=== PATIENT | male | born 1950 | race Caucasian/White ===

== ENCOUNTER 2016-06-16 15:21 | Emergency (ER) | payer MEDICARE ==
--- NOTE | ~2016-06-16 | CR72 ---
[facility]. [facility] A Service of [facility] RADIOLOGY TEXT RESULTS PATIENT: ALEXANDRA MAC LOCATION: SED : 54 UNIT #: [id number] AGE: [address]: Paul Gonzalez MD SEX: M ORDER DR: [id number] [place] [id number] E MR#: [id number] Acc #: [id number] NAME: ALEXANDRA MAC : 1950 SEX: M STUDY DATE/TIME: 06/16/2016 15:27 UNIT: SED ROOM: STUDY DESCRIPTION: CR Chest Single View Portable Attending Physician: aPul Gonzalez M.D. Ordering Physician: Paul Gonzalez M.D. Primary Care Physician: Primary Care Physician No MEDICAL IMAGING REPORT This report is preliminary unless electronic signature is present. EXAM Portable chest HISTORY Congestion and chest pain and shortness of air for 2 days. FINDINGS The cardiac size and pulmonary vascularity are within normal limits. No airspace infiltrates or effusions. IMPRESSION Negative chest. Dictated by... Eros Shen M.D. THIS IS AN ELECTRONICALLY VERIFIED REPORT Eros Shen M.D. at 06/17/2016 3:01 PM Elizabeth TD: 06/17/2016 07:39 JOB #: [id number] MEDICAL IMAGING REPORT Page 1 of 1
[~2016-06-16 15:21] MED LIST: ACETAMINOPHEN500 M3 PO; ADVAIR 250-501 EAC1 INH; ALB/IPRATROPIUM/1 E1 INH; ALBUTEROL 0.5ML INH; ALBUTEROL MININEB NEB; ALBUTEROL0.63 MG/3 IH; ALBUTEROL0.83 MG/ML IH; ALBUTEROL17 GM INH; ALPRAZOLAM1 MG PO; AMITRIPTYLINE H25 MG PO; AMITRIPTYLINE H50 MG PO; AUGMENTIN PO; AVELOX400 M1 PO; AZITHROMYCIN250 MG PO; BUMETANIDE1 MG PO; BUMEX1 MG PO; CIPRO PO; CLEOCIN HCL300 M1 PO; CLONIDINE HCL0.1 MG PO; COMBIVENT INH14.7 GM INH; COMBIVENT MININEB INH; COMBIVENT U/D3 ML INH; COMBIVENT14.7 GM INH; DOXYCYCLINE150 MG PO; DUONEB 2.5-0.5 M3 ML NEB; GABAPENTIN400 M2 PO; IBUPROFEN800 MG PO; KLONOPIN1 MG PO; KLONOPIN2 MG PO; LASIX PO; LEVAQUIN750 MG PO; LORTAB 10-5001 EACH PO; LORTAB 10/500 T1 TAB PO; LORTAB 101 TAB 10/5 PO; LORTAB 5/500 TA1 TA1 PO; LOTRIMIN 1% CR30 GM TOP; MEDROL DOSEPAK4 MG DOB; MEDROL PO; MEDROL4 MG/DOSE- PO; METHADONE HCL10 MG PO; METHADONE PO; MOTRIN600 MG PO; MUCUS RELIEF600 MG PO; NO MEDICATIONS; PREDNISONE PO; PREDNISONE10 MG PO; PREDNISONE10 MG/DOSE PO; PROAIR HFA8.5 GM IH; PROVENTIL0.83 MG/ML IH; PROVENTIL17 G1 IH; SPIRIVA18 MCG INH; SYMBICORT 160/4.6 GM IH; SYMBICORT INH; TRAMADOL HCL50 M1 PO; TYL325 PO; VALIUM2 MG PO; VIBRAMYCIN100 M1 PO; WALGREENS PHARMACY; XANAX1 MG PO; ZITHROMAX PO; ZITHROMAX1 G/PKT PO
[2016-06-16 16:02] LABS: BASOPHIL% 0.5 % (0-2.5); EOSINOPHIL# 0.4 X10e3 (0-0.7); EOSINOPHIL% 4.3 % (0.0-7.0); HEMATOCRIT 40.4 % (38.0-50.0); HEMOGLOBIN 13.3 gm/dL (13.0-16.0); LYMPHOCYTE# 1.4 X10e3 (1.0-3.5); MEAN CELL VOLUME 89.4 FL (83-96); MEAN CORPUSCULAR HEMOGLOBIN 29.5 PG (28-34); MEAN PLATELET VOLUME 8.4 FL (6.5-11.5); MONOCYTE# 0.8 X10e3 (0-1.0); MONOCYTE% 9.4 % (3.0-12.0); NEUTROPHIL% 69.8 % (40-75); PLATELET COUNT 159 X10e3 (140-420); RED BLOOD COUNT 4.52 X10e (3.90-5.60); RED CELL DISTRIBUTION WIDTH 13.9 % (11.0-15.5); WHITE BLOOD COUNT 8.6 X10e3 (4.0-10.5)
[2016-06-16 16:09] LABS: DIFF IND NO
[2016-06-16 16:22] LABS: ALBUMIN SERUM 4.1 g/dL (3.5-5.0); BILIRUBIN,TOTAL 0.7 mg/dL (0.2-2.0); CALCIUM SERUM 8.8 mg/dL (8.4-10.2); CREATININE SERUM 0.7 mg/dL (0.6-1.4); GLOM FILT RATE Estimated 100.5 mL/min (>60); POTASSIUM 4.1 mmol/L (3.5-5.1); PROTEIN TOTAL SERUM 7.5 g/dL (6.0-8.3)
[2016-06-16 17:36] LABS: POC - CKMB 2.4 ng/mL (0.0-7.9); POC - TROPONIN <0.05 ng/mL (<=0.05)
== END 2016-06-16 17:52 | disposition home or self-care (01) ==
LOC: SED 15:21
PROVIDERS: Emergency Medicine
DX: J44.1 Chronic obstructive pulmonary disease with (acute) exacerbation (principal); J20.9 Acute bronchitis, unspecified; J44.0 Chronic obstructive pulmonary disease with (acute) lower respiratory infection; B19.20 Unspecified viral hepatitis C without hepatic coma; F17.200 Nicotine dependence, unspecified, uncomplicated
CPT/HCPCS: 36415; 71010; 80053; 82553; 83874; 84484; 85025; 94640; 96374; 99291; J1100

== ENCOUNTER 2016-10-23 13:16 | Emergency (ER) | payer MEDICARE ==
[~2016-10-23] VITALS: Ht 175.3 cm; Wt 99.8 kg
--- NOTE | ~2016-10-23 | EKG ---
PATIENT: ALEXANDRA MAC UNIT #: [id number] Ventricular Rate: 114 BPM Atrial Rate: 114 BPM P-R Interval: 162 ms QRS Duration: 90 ms Q-T Interval: 344 ms QTC Calculation(Bezet): 474 ms P [place]: 74 degrees Calculated R [place]: -47 degrees Calculated T [place]: 67 degrees Diagnosis Line: Sinus tachycardia Diagnosis Line: Left axis deviation Diagnosis Line: Abnormal ECG Diagnosis Line: When compared with ECG of 12-NOV-2015 22:13, Diagnosis Line: No significant change was found Diagnosis Line: Confirmed by KARIME MESA MD ([id number]) on 10/23/2016 Diagnosis Line: 7:49:12 PM INTERPRETING MD: MOSHE JETER
[2016-10-23 14:06] LABS: BASOPHIL# 0.1 X10e3 (0-0.3); BASOPHIL% 0.5 % (0-2.5); EOSINOPHIL# 0.4 X10e3 (0-0.7); EOSINOPHIL% 4.4 % (0.0-7.0); HEMATOCRIT 41.8 % (38.0-50.0); HEMOGLOBIN 14.2 gm/dL (13.0-16.0); LYMPHOCYTE# 2.4 X10e3 (1.0-3.5); LYMPHOCYTE% 25.5 % (17.0-45.0); MEAN CELL VOLUME 88.2 FL (83-96); MEAN CORPUSCULAR HEMOGLOBIN 30.1 PG (28-34); MEAN CORPUSCULAR HGB CONC 34.1 g/dL (30-36); MEAN PLATELET VOLUME 8.3 FL (6.5-11.5); MONOCYTE# 0.7 X10e3 (0-1.0); MONOCYTE% 7.6 % (3.0-12.0); NEUTROPHIL# 5.9 X10e3 (1.5-7.1); PLATELET COUNT 229 X10e3 (140-420); RED BLOOD COUNT 4.73 X10e (3.90-5.60); RED CELL DISTRIBUTION WIDTH 13.6 % (11.0-15.5); WHITE BLOOD COUNT 9.5 X10e3 (4.0-10.5)
[2016-10-23 14:08] LABS: DIFF IND NO
[2016-10-23 14:39] LABS: ALBUMIN SERUM 4.5 g/dL (3.5-5.0); ALKALINE PHOSPHATASE 58 U/L (32-92); ALT (SGPT) 15 U/L (10-40); AST (SGOT) 19 U/L (10-42); BILIRUBIN, DIRECT 0.1 mg/dL (0.0-0.2); BILIRUBIN,INDIRECT 0.2 mg/dL (0.0-0.9); BILIRUBIN,TOTAL 0.3 mg/dL (0.2-2.0); BLOOD UREA NITROGEN 16 mg/dL (9-23); CALCIUM SERUM 9.2 mg/dL (8.4-10.2); CARBON DIOXIDE 25 mmol/L (22-31); CHLORIDE 103 mmol/L (100-111); CREATININE SERUM 0.8 mg/dL (0.6-1.4); GLOM FILT RATE Estimated 95.1 mL/min (>60); GLUCOSE FASTING 125 mg/dL (70-110); POTASSIUM 3.6 mmol/L (3.5-5.1); PROTEIN TOTAL SERUM 7.8 g/dL (6.0-8.3); SALICYLATE <4.0 mg/dL; SODIUM 138 mmol/L (135-145)
[2016-10-23 14:44] LABS: ACETAMINOPHEN <10 ug/mL; ALCOHOL BLOOD <5 mg/dL (0)
== END 2016-10-23 13:59 | disposition left against medical advice (07) ==
LOC: CED 13:16
PROVIDERS: Emergency Medicine
DX: R41.82 Altered mental status, unspecified (principal); J44.9 Chronic obstructive pulmonary disease, unspecified; F17.200 Nicotine dependence, unspecified, uncomplicated
CPT/HCPCS: 80048; 80076; 85025; 93005; 99285; G0480

== ENCOUNTER 2016-12-04 07:52 | Emergency (ER) | payer MEDICARE ==
[~2016-12-04] VITALS: Ht 177.8 cm; Wt 93.0 kg
--- NOTE | ~2016-12-04 | EKG ---
PATIENT: ALEXANDRA MAC UNIT #: [id number] Ventricular Rate: 67 BPM Atrial Rate: 67 BPM P-R Interval: 166 ms QRS Duration: 92 ms Q-T Interval: 434 ms QTC Calculation(Bezet): 458 ms P [place]: 62 degrees Calculated R [place]: -38 degrees Calculated T [place]: 50 degrees Diagnosis Line: Normal sinus rhythm Diagnosis Line: Left axis deviation Diagnosis Line: Otherwise normal ECG Diagnosis Line: When compared with ECG of 23-OCT-2016 13:39, Diagnosis Line: Vent. rate has decreased BY 47 BPM Diagnosis Line: Confirmed by SHANNA NOLASCO MD ([id number]) on 12/04/2016 Diagnosis Line: 7:39:40 PM INTERPRETING MD: CONSTANCE JETER
--- NOTE | ~2016-12-04 | CR72 ---
[facility] A Service of [facility] RADIOLOGY TEXT RESULTS PATIENT: ALEXANDRA MAC LOCATION: [facility] : [birth year] UNIT #: [id number] AGE: [address]: Natalie Cochran APRN SEX: M ORDER DR: [id number] [place] [address] [place], [place] [address] [id number] E MR#: [id number] Acc #: [id number] NAME: ALEXANDRA MAC : 1950 SEX: M STUDY DATE/TIME: 12/04/2016 8:42 UNIT: [facility] ROOM: STUDY DESCRIPTION: CR Chest Single View Portable Attending Physician: Natalie Cochran A.P.R.N. Ordering Physician: Ed Doctor [id number] [facility] Primary Care Physician: [place] Roper M.D. MEDICAL IMAGING REPORT This report is preliminary unless electronic signature is present EXAM Right shoulder series 12/04/2016 HISTORY Short of air, patient states short of air began today. Also, cough. TECHNIQUE AP radiograph of the chest is presented COMPARISON 06/16/2016 FINDINGS Cardiomediastinal contours normal. Lungs hyperinflated suggesting underlying chronic airway disease. There is no clear indication of acute infectious or inflammatory disease, pleural effusion or pneumothorax. No suspicious nodule. Calcified granuloma right upper lung zone. Dictated by... Kenney Brandt M.D. THIS IS AN ELECTRONICALLY VERIFIED REPORT Kenney Brandt M.D. at 12/06/2016 2:30 PM KURTISK/howard TD: 12/04/2016 14:53 JOB #: [id number] MEDICAL IMAGING REPORT Page 1 of 1 COPY
[2016-12-04 08:46] LABS: BASOPHIL% 0.5 % (0-2.5); EOSINOPHIL# 0.5 X10e3 (0-0.7); EOSINOPHIL% 6.8 % (0.0-7.0); HEMATOCRIT 36.9 % (38.0-50.0); HEMOGLOBIN 12.4 gm/dL (13.0-16.0); LYMPHOCYTE# 1.4 X10e3 (1.0-3.5); LYMPHOCYTE% 20.5 % (17.0-45.0); MEAN CELL VOLUME 89.2 FL (83-96); MEAN CORPUSCULAR HGB CONC 33.6 g/dL (30-36); MEAN PLATELET VOLUME 8.1 FL (6.5-11.5); MONOCYTE# 0.7 X10e3 (0-1.0); MONOCYTE% 10.2 % (3.0-12.0); NEUTROPHIL# 4.1 X10e3 (1.5-7.1); PLATELET COUNT 180 X10e3 (140-420); RED BLOOD COUNT 4.13 X10e (3.90-5.60); RED CELL DISTRIBUTION WIDTH 13.9 % (11.0-15.5); WHITE BLOOD COUNT 6.7 X10e3 (4.0-10.5)
[2016-12-04 08:49] LABS: DIFF IND NO
[2016-12-04 08:57] LABS: POC - CKMB 2.2 ng/mL (0.0-7.9); POC - TROPONIN <0.05 ng/mL (<=0.05)
[2016-12-04 09:13] LABS: ALBUMIN SERUM 3.9 g/dL (3.5-5.0); ALKALINE PHOSPHATASE 53 U/L (32-92); ALT (SGPT) 12 U/L (10-40); AST (SGOT) 20 U/L (10-42); BILIRUBIN,TOTAL 0.2 mg/dL (0.2-2.0); BLOOD UREA NITROGEN 15 mg/dL (9-23); BUN/CREATININE RATIO 21.42; CALCIUM SERUM 8.7 mg/dL (8.4-10.2); CARBON DIOXIDE 28 mmol/L (22-31); CHLORIDE 105 mmol/L (100-111); CREATININE SERUM 0.7 mg/dL (0.6-1.4); GLOM FILT RATE Estimated 99.8 mL/min (>60); GLUCOSE FASTING 106 mg/dL (70-110); POTASSIUM 3.9 mmol/L (3.5-5.1); PROTEIN TOTAL SERUM 6.6 g/dL (6.0-8.3); SODIUM 139 mmol/L (135-145)
[2016-12-04 09:15] LABS: BILIRUBIN, DIRECT <0.1 mg/dL (0.0-0.2); BILIRUBIN,INDIRECT 0.1 mg/dL (0.0-0.9)
[2016-12-04 10:42] LABS: ARTERIAL BLOOD GAS CARBOXY HB 1.7 %sat (0.0-9.0); ARTERIAL BLOOD GAS HCO3 27.5 mmol/L; ARTERIAL BLOOD GAS MET HB 0.5 %sat (0.0-2.0); ARTERIAL BLOOD GAS PCO2 47.4 mmHg (35.0-45.0); ARTERIAL BLOOD GAS PO2 81.6 mmHg (80.0-100); ARTERIAL BLOOD GAS pH 7.372 (7.350-7.450)
[2016-12-04 10:43] LABS: ARTERIAL BLOOD GAS ALLEN TEST NORMAL; ARTERIAL BLOOD GAS ART SITE RIGHT RADIAL; ARTERIAL BLOOD GAS DELIVERY NASAL CANNULA; ARTERIAL DRAW? YES
== END 2016-12-04 12:08 | disposition home or self-care (01) ==
LOC: CED 07:52
PROVIDERS: Nurse Practitioner
DX: J44.1 Chronic obstructive pulmonary disease with (acute) exacerbation (principal); F17.210 Nicotine dependence, cigarettes, uncomplicated
CPT/HCPCS: 36415; 36600; 71010; 80048; 80076; 82553; 82803; 84484; 85025; 93005; 94640; 99285; J2930